=== PATIENT | male | born 1955 | race Caucasian/White ===

== ENCOUNTER 2020-11-12 07:48 | Outpatient (REF) | payer MEDICARE, BC, SELFPAY ==
[2020-11-12 11:05] LABS: Hematocrit 40.4 % (42-52); Hemoglobin 13.6 g/dl (14.0-18.0); Mean Corpuscular HGB Conc 33.7 g/dl (31.0-36.0); Mean Corpuscular Hemoglobin 32.9 pg (27.0-33.0); Mean Corpuscular Volume 97.6 fL (80-98); Mean Platelet Volume 10.7 fL (9.4-12.4); Platelet Count 223 X10*3/uL (160-400); Red Blood Count 4.14 X10*6/uL (4.60-5.80); Red Cell Distribution Width 12.8 % (11.0-16.0); White Blood Count 4.2 X10*3/uL (4.8-10.8)
[2020-11-12 11:58] LABS: Alanine Aminotransferase 24 U/L (0-40); Albumin Level 4.3 g/dL (3.5-5.0); Alkaline Phosphatase 76 U/L (39-117); Anion Gap 13 (12-20); Aspartate Amino Transferase 26 U/L (5-37); Bilirubin Total 0.5 mg/dL (0.0-1.0); Blood Urea Nitrogen 17 mg/dL (9-16); Calcium 8.4 mg/dL (8.4-10.2); Carbon Dioxide 25 mmol/L (22-29); Chloride 106 mmol/L (96-108); Cholesterol 157 mg/dL; Estimated Glomerular Filt Rate > 60; Glucose Fasting 93 mg/dL (60-99); HDL Cholesterol 38 mg/dL; LDL Cholesterol Calculated 79 mg/dl; Potassium 4.1 mmol/L (3.3-5.1); Sodium 140 mmol/L (135-145); Total Protein 7.3 g/dL (6.5-8.0); Triglycerides 202 mg/dL
[2020-11-12 12:20] LABS: Prostate Specific Antigen 1.58 ng/mL (<0.05-4.0)
[2020-11-13 04:52] LABS: Lyme Abs Screen <0.90 index
== END 2020-11-12 07:49 | disposition home or self-care (01) ==
LOC: HO.MANLDS 07:48
PROVIDERS: PCP Internal Medicine; Visit Provider Internal Medicine
DX: Z12.5 Encounter for screening for malignant neoplasm of prostate (principal); Z01.84 Encounter for antibody response examination; I10 Essential (primary) hypertension; N40.0 Benign prostatic hyperplasia without lower urinary tract symptoms; E78.00 Pure hypercholesterolemia, unspecified; Z86.19 Personal history of other infectious and parasitic diseases
CPT/HCPCS: 36415; 80053; 80061; 84153; 85027; 86618; 86735; 86762

== ENCOUNTER 2023-06-15 09:29 | Outpatient (REF) | payer MEDICARE, BC, SELFPAY ==
[2023-06-15 11:59] LABS: MANUAL DIFF FLAG NO
[2023-06-15 12:09] LABS: Basophils Percent Auto 0.5 % (0-2); Eosinophils Absolute Auto 0.1 X10*3/uL (0.0-0.4); Eosinophils Percent Auto 2.5 % (0-4); Hematocrit 42.1 % (42.0-52.0); Hemoglobin 13.9 g/dl (14.0-18.0); Imm Gran Abs Auto 0.01 X10*3/uL (0.00-0.03); Imm Gran Pct Auto 0.2 % (0.0-0.4); Lymphocytes Percent Auto 23.6 % (20-40); Mean Corpuscular Hemoglobin 32.3 pg (27.0-33.0); Mean Corpuscular Volume 97.9 fL (80.0-98.0); Mean Platelet Volume 10.8 fL (9.4-12.4); Monocytes Absolute Auto 0.5 X10*3/uL (0.1-1.2); Monocytes Percent Auto 11.6 % (2-11); Neutrophils Absolute Auto 2.5 x10*3/uL (2.0-8.3); Neutrophils Percent Auto 61.6 % (45-73); Platelet Count 193 X10*3/uL (160-400); Red Cell Distribution Width 13.2 % (11.0-16.0); White Blood Count 4.1 X10*3/uL (4.8-10.8)
[2023-06-15 12:31] LABS: Alanine Aminotransferase 26 U/L (0-40); Albumin Level 4.4 g/dL (3.5-5.0); Alkaline Phosphatase 61 U/L (39-117); Anion Gap 12 (12-20); Aspartate Amino Transferase 31 U/L (5-37); Bilirubin Total 0.6 mg/dL (0.0-1.0); Blood Urea Nitrogen 17 mg/dL (9-16); Calcium 9.5 mg/dL (8.4-10.2); Carbon Dioxide 27 mmol/L (22-29); Chloride 105 mmol/L (96-108); Cholesterol 154 mg/dL (<200); Estimated Glomerular Filt Rate > 60; Glucose Random 104 mg/dL (60-115); HDL Cholesterol 36 mg/dL (>40); LDL Cholesterol Calculated 73 mg/dL (<100); Potassium 4.2 mmol/L (3.3-5.1); Sodium 140 mmol/L (135-145); Total Protein 7.5 g/dL (6.5-8.0); Triglycerides 225 mg/dL (<150)
[2023-06-15 12:41] LABS: Prostate Specific Antigen 1.22 ng/mL (<0.05-4.0)
== END 2023-06-15 09:30 | disposition home or self-care (01) ==
LOC: HO.MANLDS 09:29
PROVIDERS: Visit Provider Internal Medicine
DX: Z12.5 Encounter for screening for malignant neoplasm of prostate (principal); I25.10 Atherosclerotic heart disease of native coronary artery without angina pectoris
CPT/HCPCS: 36415; 80053; 80061; 84153; 85025

== ENCOUNTER 2025-07-09 10:02 | Outpatient (REF) | payer MEDICARE, BC, SELFPAY ==
[2025-07-09 14:00] LABS: Hemoglobin A1C 147.9421 umol/L; Total Hemoglobin (HGBA1C) 3506.7248 umol/L
[2025-07-09 14:16] LABS: Prostate Specific Antigen 1.62 ng/mL (<0.05-4.0)
== END 2025-07-09 10:03 | disposition home or self-care (01) ==
LOC: HO.MANLDS 10:02
PROVIDERS: Visit Provider Internal Medicine
DX: Z12.5 Encounter for screening for malignant neoplasm of prostate (principal); N40.0 Benign prostatic hyperplasia without lower urinary tract symptoms; R73.9 Hyperglycemia, unspecified
CPT/HCPCS: 36415; 83036; 84153